=== PATIENT | female | born 1980 | race Asian ===

== ENCOUNTER → 2020-07-18 12:50 | Outpatient (BNVA) | payer OTHER, SELFPAY | PROVIDERS: Family Provider Family Medicine; Visit Provider Nurse Practitioner Family | DX: Z20.828 Contact with and (suspected) exposure to other viral communicable diseases (principal) | CPT/HCPCS: 87635 ==

== ENCOUNTER 2020-07-30 11:18 | Outpatient (CLI) | payer OTHER, SELFPAY ==
--- NOTE | 2020-07-30 11:22 | MM_ITS ---
WS: [id number] BILATERAL DIGITAL SCREENING MAMMOGRAPHY WITH CAD CLINICAL INFORMATION: SCREENING HISTORY: Screening mammogram. No current complaints. COMPARISON: 8 60 TECHNIQUE: Bilateral CC and MLO views. FINDINGS: Scattered fibroglandular densities bilaterally. No suspicious focal mass, asymmetry, calcifications, or architectural distortion. No evidence of malignancy. MM/[place] [id number] IMPRESSION: BI-RADS: 1-Negative FOLLOW UP: 1 Year Follow-up Recommend return to annual screening mammography.
== END 2020-07-30 11:19 | disposition home or self-care (01) ==
LOC: RADSHAW 11:20
PROVIDERS: PCP Family Medicine Adult Medicine; Visit Provider Family Medicine
DX: Z12.31 Encounter for screening mammogram for malignant neoplasm of breast (principal)
CPT/HCPCS: 77067

== ENCOUNTER 2020-11-25 12:13 | Emergency (ER) | payer OTHER, SELFPAY ==
[2020-11-25 12:16] VITALS: BP 171/92; PULSE 88; RESP 16; TEMP 36.7; O2SAT 99; BMI 28.3
--- NOTE | 2020-11-25 12:26 | ED_ITS ---
Documented by User: MILENA Angeles 11/26/20 06:59 HPI - Abdominal Pain General: Chief Complaint: Abdominal Pain Stated Complaint: severe abdominal pain Time Seen by Provider: 11/25/20 12:14 Source: patient and family Mode of arrival: ambulatory Limitations: no limitations History of Present Illness: HPI narrative: Patient is a 40-year-old female who presents to ED today for evaluation of upper abdominal pain. Patient tells me she has had the pain intermittently for several weeks. She tells me she was seen at urgent care approximately a month ago for similar symptoms and was prescribed a 2-week course of omeprazole. Patient tells me while she was taking this medication she no longer experienced pain. She states after the medication ran out, her pain began again. She states pain is worse after eating stating that certain foods (spicy) do seem to elicit pain. She states her pain seems to be worse at night when she lies down. She is not having any vomiting. She has not noticed any changes to her bowel movements. No fevers. No history of GI bleed. Patient is not on anticoagulation. She has no history of gastric or duodenal ulcers. MD elicited complaint: abdominal pain Onset (ago): week(s) Pain Consistency: intermittent Location: Epigastric Severity: moderate Radiation: none Migration to: no migration Exacerbating factors: eating Associated Symptoms: Denies change in bowel habits, change in stool character, chills, constipation, dysuria, fever(s), hematochezia, nausea and vomiting Treatments prior to arrival: other (PPI) Review of Systems Const: Denies: fever(s), chills, body aches or fatigue Card: Denies: chest pain Resp: Denies: dyspnea GI: Reports: abdominal pain; Denies: nausea, vomiting, constipation, change in bowel habits, change in stool character or hematochezia : Denies: flank pain, difficulty voiding, dysuria, urinary frequency or urinary urgency Musc: Denies: neck pain or back pain Skin/Breast: Denies: rash Neuro: Denies: headache(s) PFSH ED PFSH: Medical History Allergic rhinitis due to allergen COVID-19 Social History Smoking and tobacco status: never smoked Alcohol intake: never Physical Exam Const: COMMON NORMALS: no acute distress, average body habitus, patient oriented x3, no limitations, healthy appearing, alert and well nourished ORIENTATION/CONSCIOUSNESS: Yes awake, Yes oriented to person, Yes oriented to place and Yes oriented to time HENMT: COMMON NORMALS: normocephalic and atraumatic HEAD & SCALP: normocephalic and atraumatic Eye: SCLERA: scleral abnormal (mild scleral icterus ) Resp: COMMON NORMALS: normal respiratory effort and clear to auscultation bilaterally AUSCULTATION: clear to auscultation bilaterally Cardio: COMMON NORMALS: regular rate and regular rhythm RATE: regular rate RHYTHM: regular rhythm GI: COMMON NORMALS: Normal to inspection, nondistended, normoactive bowel sounds present, Soft to palpation, No hepatosplenomegaly present and no masses PALPATION: Yes Soft to palpation, Yes Tenderness to palpation present (GI) Details: other (epigastric ) and Yes No hepatosplenomegaly present : COMMON NORMALS: Yes no CVA tenderness BLADDER/KIDNEY EXAM: Yes no CVA tenderness Back/Pelvis: COMMON NORMALS: no CVA tenderness Neuro: COMMON NORMALS: patient oriented x3 SENSORIUM/ORIENTATION: Yes alert, Yes oriented to person, Yes oriented to place and Yes oriented to time Skin: NARRATIVE SKIN EXAM: mild jaundice Course ED course: CMP revealing elevated LFTs and bili. Patient denies alcohol or drug use. Her pain clinically is not localized to her right upper quadrant however we will obtain gallbladder ultrasound to rule this out as a possible etiology. Patient was born and raised in the [facility]-she is not sure about hepatitis childhood immunizations. We will add hepatitis panel, acetaminophen, alcohol, UDS, and INR to evaluate LFT elevations further. US gallbladder showing several large stones. Could not definitely state whether CBD was dilated or not. Her hepatitis panel is negative. She will need a MRCP for further evaluation. Reevaluation(s): Reevaluation #1: There will be a delay in pt care as MRCP cannot be performed until 4 hours post GI cocktail ingestion. Currently MRCP scheduled at 1700. Time: 15:10 Vital Signs: Vital signs: Vital Signs Temperature 98.0 F 11/25/20 19:45 Pulse Rate 68 11/25/20 19:45 Respiratory Rate 16 11/25/20 19:45 Blood Pressure 143/87 11/25/20 19:45 Pulse Oximetry 99 11/25/20 19:45 MDM - Abdominal Pain MDM Narrative: Medical decision making narrative: Care transferred to Dr. Reddy pending results of [facility]. Lab Data: Labs: Lab Results 11/25/20 11/25/20 11/25/20 Range/Units 12:50 12:50 12:50 WBC 9.4 (4.0-10.0) 10^3/ uL RBC 4.82 (4.1-5.3) 10^6/u L Hgb 13.2 (11.5-15.3) g/dL Hct 39.3 (37.0-47.0) % MCV 81.5 (81-99) fL MCH 27.4 L (28.0-34.0) pg MCHC 33.6 (30.0-36.0) g/dL RDW 12.4 (12.1-15.1) % Plt Count 342 (130-400) 10^3/c mm MPV 8.8 (7.4-10.4) fL Neut % (Auto) 80.8 % Lymph % (Auto) 11.5 % [place] % (Auto) 6.9 % Eos % (Auto) 0.4 % Baso % (Auto) 0.2 % Neut # (Auto) 7.55 (1.8-7.7) 10^3/u L Lymph # (Auto) 1.1 (0.8-4.8) 10^3/u L [place] # (Auto) 0.7 (0.2-0.9) 10^3/u L Eos # (Auto) 0.0 (0.0-0.8) 10^3/u L Baso # (Auto) 0.0 (0.0-0.1) 10^3/u L Nucleated RBC % (a uto) 0 % Nucleated RBCs # 0.0 /100WBC PT (12.1-14.9) SECO NDS INR (0.8-1.2) Sodium 136 (136-145) mmol/L Potassium 4.3 (3.5-5.1) mmol/L Chloride 99 (98-107) mmol/L Carbon Dioxide 25 (22-29) mmol/L Anion Gap 16.3 (5-19) BUN 11 (6-20) mg/dL Creatinine 0.4 L (0.5-0.9) mg/dL GFR Calculation 175.9 H (90-130) mL/min Glucose 109 (65-115) mg/dL Calculated Osmolal ity 282 L (285-295) mOsm/k g Calcium 9.7 (8.5-10.5) mg/dL Total Bilirubin 2.3 H (0.15-1.2) mg/dL Direct Bilirubin (0.00-0.30) mg/d L Indirect Bilirubin AST 1480 H (0-32) U/L ALT 1018 H (0-33) U/L Alkaline Phosphata se 129 H (35-105) IU/L Total Protein 7.9 (6.6-8.7) g/dL Albumin 4.5 (3.5-5.2) g/dL Globulin 3.4 (1.3-4.6) g/dL Lipase 45 (13-60) U/L HCG, Qual Negative (Negative) Urine Color (Yellow) Urine Appearance (CLEAR) Urine pH (5-7) Ur Specific Gravit y (1.005-1.030) Urine Protein (Negative) Urine Glucose (UA) (Normal) Urine Ketones (Negative) Urine Blood (Negative) Urine Nitrate (Negative) Urine Bilirubin (Negative) Urine Urobilinogen (Negative) mg/dL Ur Leukocyte Bridgett ase (Negative) Urine RBC (0-2) /hpf Urine WBC (0-5) /hpf Ur Squamous Epith Cells (0-5) /hpf Amorphous Sediment Urine Bacteria (NONE) /hpf Urine Opiates Scre en (Negative) ng/mL Acetaminophen (10-30) ug/mL Ur Barbiturates Sc reen (Negative) ng/mL Ur Phencyclidine S crn (Negative) ng/mL Ur Amphetamines Sc reen (Negative) ng/mL U Benzodiazepines Scrn (Negative) ng/mL Urine Cocaine Scre en (Negative) ng/mL U Marijuana (THC) Screen (Negative) ng/mL Ethyl Alcohol (0-10) mg/dL H. pylori IgG Anti body (Negative) Hepatitis A IgM Ab (Nonreactive) Hep Bs Antigen (Nonreactive) Hep B Core IgM Ab (Nonreactive) Hepatitis C Antibo dy (Nonreactive) 11/25/20 11/25/20 11/25/20 Range/Units 12:50 12:50 12:50 WBC (4.0-10.0) 10^3/ uL RBC (4.1-5.3) 10^6/u L Hgb (11.5-15.3) g/dL Hct (37.0-47.0) % MCV (81-99) fL MCH (28.0-34.0) pg MCHC (30.0-36.0) g/dL RDW (12.1-15.1) % Plt Count (130-400) 10^3/c mm MPV (7.4-10.4) fL Neut % (Auto) % Lymph % (Auto) % [place] % (Auto) % Eos % (Auto) % Baso % (Auto) % Neut # (Auto) (1.8-7.7) 10^3/u L Lymph # (Auto) (0.8-4.8) 10^3/u L [place] # (Auto) (0.2-0.9) 10^3/u L Eos # (Auto) (0.0-0.8) 10^3/u L Baso # (Auto) (0.0-0.1) 10^3/u L Nucleated RBC % (a uto) % Nucleated RBCs # /100WBC PT 12.80 (12.1-14.9) SECO NDS INR 0.93 (0.8-1.2) Sodium (136-145) mmol/L Potassium (3.5-5.1) mmol/L Chloride (98-107) mmol/L Carbon Dioxide (22-29) mmol/L Anion Gap (5-19) BUN (6-20) mg/dL Creatinine (0.5-0.9) mg/dL GFR Calculation (90-130) mL/min Glucose (65-115) mg/dL Calculated Osmolal ity (285-295) mOsm/k g Calcium (8.5-10.5) mg/dL Total Bilirubin (0.15-1.2) mg/dL Direct Bilirubin (0.00-0.30) mg/d L Indirect Bilirubin AST (0-32) U/L ALT (0-33) U/L Alkaline Phosphata se (35-105) IU/L Total Protein (6.6-8.7) g/dL Albumin (3.5-5.2) g/dL Globulin (1.3-4.6) g/dL Lipase (13-60) U/L HCG, Qual (Negative) Urine Color (Yellow) Urine Appearance (CLEAR) Urine pH (5-7) Ur Specific Gravit y (1.005-1.030) Urine Protein (Negative) Urine Glucose (UA) (Normal) Urine Ketones (Negative) Urine Blood (Negative) Urine Nitrate (Negative) Urine Bilirubin (Negative) Urine Urobilinogen (Negative) mg/dL Ur Leukocyte Bridgett ase (Negative) Urine RBC (0-2) /hpf Urine WBC (0-5) /hpf Ur Squamous Epith Cells (0-5) /hpf Amorphous Sediment Urine Bacteria (NONE) /hpf Urine Opiates Scre en (Negative) ng/mL Acetaminophen (10-30) ug/mL Ur Barbiturates Sc reen (Negative) ng/mL Ur Phencyclidine S crn (Negative) ng/mL Ur Amphetamines Sc reen (Negative) ng/mL U Benzodiazepines Scrn (Negative) ng/mL Urine Cocaine Scre en (Negative) ng/mL U Marijuana (THC) Screen (Negative) ng/mL Ethyl Alcohol (0-10) mg/dL H. pylori IgG Anti body Negative (Negative) Hepatitis A IgM Ab Non-reactive (Nonreactive) Hep Bs Antigen Non-reactive (Nonreactive) Hep B Core IgM Ab Non-reactive (Nonreactive) Hepatitis C Antibo dy Non-reactive (Nonreactive) 11/25/20 11/25/20 11/25/20 Range/Units 12:50 12:50 15:54 WBC (4.0-10.0) 10^3/ uL RBC (4.1-5.3) 10^6/u L Hgb (11.5-15.3) g/dL Hct (37.0-47.0) % MCV (81-99) fL MCH (28.0-34.0) pg MCHC (30.0-36.0) g/dL RDW (12.1-15.1) % Plt Count (130-400) 10^3/c mm MPV (7.4-10.4) fL Neut % (Auto) % Lymph % (Auto) % [place] % (Auto) % Eos % (Auto) % Baso % (Auto) % Neut # (Auto) (1.8-7.7) 10^3/u L Lymph # (Auto) (0.8-4.8) 10^3/u L [place] # (Auto) (0.2-0.9) 10^3/u L Eos # (Auto) (0.0-0.8) 10^3/u L Baso # (Auto) (0.0-0.1) 10^3/u L Nucleated RBC % (a uto) % Nucleated RBCs # /100WBC PT (12.1-14.9) SECO NDS INR (0.8-1.2) Sodium (136-145) mmol/L Potassium (3.5-5.1) mmol/L Chloride (98-107) mmol/L Carbon Dioxide (22-29) mmol/L Anion Gap (5-19) BUN (6-20) mg/dL Creatinine (0.5-0.9) mg/dL GFR Calculation (90-130) mL/min Glucose (65-115) mg/dL Calculated Osmolal ity (285-295) mOsm/k g Calcium (8.5-10.5) mg/dL Total Bilirubin 2.4 H (0.15-1.2) mg/dL Direct Bilirubin 1.60 H (0.00-0.30) mg/d L Indirect Bilirubin 0.80 AST (0-32) U/L ALT (0-33) U/L Alkaline Phosphata se (35-105) IU/L Total Protein (6.6-8.7) g/dL Albumin (3.5-5.2) g/dL Globulin (1.3-4.6) g/dL Lipase (13-60) U/L HCG, Qual (Negative) Urine Color (Yellow) Urine Appearance (CLEAR) Urine pH (5-7) Ur Specific Gravit y (1.005-1.030) Urine Protein (Negative) Urine Glucose (UA) (Normal) Urine Ketones (Negative) Urine Blood (Negative) Urine Nitrate (Negative) Urine Bilirubin (Negative) Urine Urobilinogen (Negative) mg/dL Ur Leukocyte Bridgett ase (Negative) Urine RBC (0-2) /hpf Urine WBC (0-5) /hpf Ur Squamous Epith Cells (0-5) /hpf Amorphous Sediment Urine Bacteria (NONE) /hpf Urine Opiates Scre en Negative (Negative) ng/mL Acetaminophen < 5.0 L (10-30) ug/mL Ur Barbiturates Sc reen Negative (Negative) ng/mL Ur Phencyclidine S crn Negative (Negative) ng/mL Ur Amphetamines Sc reen Negative (Negative) ng/mL U Benzodiazepines Scrn Negative (Negative) ng/mL Urine Cocaine Scre en Negative (Negative) ng/mL U Marijuana (THC) Screen Negative (Negative) ng/mL Ethyl Alcohol < 10 (0-10) mg/dL H. pylori IgG Anti body (Negative) Hepatitis A IgM Ab (Nonreactive) Hep Bs Antigen (Nonreactive) Hep B Core IgM Ab (Nonreactive) Hepatitis C Antibo dy (Nonreactive) 11/25/20 Range/Units 15:54 WBC (4.0-10.0) 10^3/ uL RBC (4.1-5.3) 10^6/u L Hgb (11.5-15.3) g/dL Hct (37.0-47.0) % MCV (81-99) fL MCH (28.0-34.0) pg MCHC (30.0-36.0) g/dL RDW (12.1-15.1) % Plt Count (130-400) 10^3/c mm MPV (7.4-10.4) fL Neut % (Auto) % Lymph % (Auto) % [place] % (Auto) % Eos % (Auto) % Baso % (Auto) % Neut # (Auto) (1.8-7.7) 10^3/u L Lymph # (Auto) (0.8-4.8) 10^3/u L [place] # (Auto) (0.2-0.9) 10^3/u L Eos # (Auto) (0.0-0.8) 10^3/u L Baso # (Auto) (0.0-0.1) 10^3/u L Nucleated RBC % (a uto) % Nucleated RBCs # /100WBC PT (12.1-14.9) SECO NDS INR (0.8-1.2) Sodium (136-145) mmol/L Potassium (3.5-5.1) mmol/L Chloride (98-107) mmol/L Carbon Dioxide (22-29) mmol/L Anion Gap (5-19) BUN (6-20) mg/dL Creatinine (0.5-0.9) mg/dL GFR Calculation (90-130) mL/min Glucose (65-115) mg/dL Calculated Osmolal ity (285-295) mOsm/k g Calcium (8.5-10.5) mg/dL Total Bilirubin (0.15-1.2) mg/dL Direct Bilirubin (0.00-0.30) mg/d L Indirect Bilirubin AST (0-32) U/L ALT (0-33) U/L Alkaline Phosphata se (35-105) IU/L Total Protein (6.6-8.7) g/dL Albumin (3.5-5.2) g/dL Globulin (1.3-4.6) g/dL Lipase (13-60) U/L HCG, Qual (Negative) Urine Color Yellow (Yellow) Urine Appearance Clear (CLEAR) Urine pH 7.0 (5-7) Ur Specific Gravit y 1.010 (1.005-1.030) Urine Protein Neg (Negative) Urine Glucose (UA) Norm (Normal) Urine Ketones 1+ H (Negative) Urine Blood 3+ H (Negative) Urine Nitrate Negative (Negative) Urine Bilirubin 1+ H (Negative) Urine Urobilinogen 1 H (Negative) mg/dL Ur Leukocyte Bridgett ase Negative (Negative) Urine RBC Rare (0-2) /hpf Urine WBC None (0-5) /hpf Ur Squamous Epith Cells Rare (0-5) /hpf Amorphous Sediment Not Reportable Urine Bacteria 1+ H (NONE) /hpf Urine Opiates Scre en (Negative) ng/mL Acetaminophen (10-30) ug/mL Ur Barbiturates Sc reen (Negative) ng/mL Ur Phencyclidine S crn (Negative) ng/mL Ur Amphetamines Sc reen (Negative) ng/mL U Benzodiazepines Scrn (Negative) ng/mL Urine Cocaine Scre en (Negative) ng/mL U Marijuana (THC) Screen (Negative) ng/mL Ethyl Alcohol (0-10) mg/dL H. pylori IgG Anti body (Negative) Hepatitis A IgM Ab (Nonreactive) Hep Bs Antigen (Nonreactive) Hep B Core IgM Ab (Nonreactive) Hepatitis C Antibo dy (Nonreactive) Imaging Data ^: US gallbladder: Radiologist's impression: [address] [address] Ultrasound Report Signed Patient: Josh Millan Unit #: [id number] : 1980 Age/Sex: 40 / F ADM Date: Loc: ER Room/Bed: Attending Dr: Ordering Provider/Ordering MD: oMnique Oconnor Date of Service: 11/25/20 Procedure(s): US gall bladder 98626 Accession Number(s): [id number] Report Number: [id number] WS: [id number] Exam: US gall bladder [id number] Date/Time of Exam: 11/25/2020 2:07 PM Reason For Exam: upper abd pain; elevated LFTs Multiple prominent stones in the gallbladder. No sign of gallbladder wall edema or pericholecystic fluid. The intrahepatic ducts are not dilated. The common bile duct was difficult to localize with any degree of certainty. The liver measures 15 cm at greatest dimension. Gallbladder foy measure 1.2 mm at greatest thickness. Normal-appearing right kidney measures 11.2 x 4.3 x 5.9 cm. The liver is echodense suggesting hepatic steatosis. US/US gall bladder 94312 IMPRESSION: 1. Multiple large stones in the gallbladder. No definite sign of acute cholecystitis at this time. 2. The common bile duct could not be identified with a degree of certainty. No obvious intrahepatic ductal dilatation. 3. Probable hepatic steatosis. Dictated By: Xavier Brice DO Signed By: Xavier Brice DO Signed Date/Time: 11/25/20 1439 DD/ 1435 Discharge Plan Discharge Patient Disposition: Home Clinical Impression: Choledocholithiasis Condition: Stable Prescriptions: New tramadol 50 mg tablet 50 mg PO DAILY PRN (Reason: pain) Qty: 14 RF: 0 omeprazole 40 mg capsule,delayed release(DR/EC) 40 mg PO DAILY 14 Days RF: 0 No Action Vitamin C 1 tab PO DAILY@0700 RF: 0 Claritin 10 mg Tablet 10 mg PO DAILY PRN (Reason: Allergy Symptoms) RF: 0 Centrum 1 tab PO DAILY@0700 RF: 0 Discharge Orders: Discharge ED (Routine); Ordered 11/25/20 Ordered By: Amari Reddy Referrals: Eric Zuniga MD [Primary Care Provider] - Discharge Diet: Advance as tolerated Discharge Activity: Resume usual activity Patient Instructions: Biliary Colic (ED) Activity Restrictions/Additional Instructions: You have a stone in your common bile duct. I have discussed with the general surgeon Dr. Meyer At [facility] and he would prefer that you follow-up as an outpatient. His clinic number is [phone]. Please call tomorrow morning for an appointment. Return to the ED with worsening symptoms at any time. Coding Level of Care Code ED Fiber Optic Splicer for Chg Fwd Exam Detailed Documented by User: Amari Reddy MD 11/25/20 19:26 HPI - Abdominal Pain General: Chief Complaint: Abdominal Pain Stated Complaint: severe abdominal pain Time Seen by Provider: 11/25/20 12:14 [facility] ED PFSH: Medical History Allergic rhinitis due to allergen COVID-19 Social History Smoking and tobacco status: never smoked Alcohol intake: never Course Vital Signs: Vital signs: Vital Signs Temperature 98.0 F 11/25/20 19:45 Pulse Rate 68 11/25/20 19:45 Respiratory Rate 16 11/25/20 19:45 Blood Pressure 143/87 11/25/20 19:45 Pulse Oximetry 99 11/25/20 19:45 MDM - Abdominal Pain MDM Narrative: Medical decision making narrative: I took over care of this patient from the nurse practitioner. There is a small distal common bile duct stone. She has elevated bilirubin and liver enzymes mildly. Discussed with surgeon Dr. Meyer at [facility] who recommended discharging and following up as an outpatient for the ERCP as her pain is controlled quite well and bilirubin is not too elevated. Discussed this with the patient and she is amenable to this plan. Return to the ER with worsening symptoms. Discharged with tramadol and omeprazole at her request Lab Data: Labs: Lab Results 11/25/20 11/25/20 11/25/20 Range/Units 12:50 12:50 12:50 WBC 9.4 (4.0-10.0) 10^3/ uL RBC 4.82 (4.1-5.3) 10^6/u L Hgb 13.2 (11.5-15.3) g/dL Hct 39.3 (37.0-47.0) % MCV 81.5 (81-99) fL MCH 27.4 L (28.0-34.0) pg MCHC 33.6 (30.0-36.0) g/dL RDW 12.4 (12.1-15.1) % Plt Count 342 (130-400) 10^3/c mm MPV 8.8 (7.4-10.4) fL Neut % (Auto) 80.8 % Lymph % (Auto) 11.5 % [place] % (Auto) 6.9 % Eos % (Auto) 0.4 % Baso % (Auto) 0.2 % Neut # (Auto) 7.55 (1.8-7.7) 10^3/u L Lymph # (Auto) 1.1 (0.8-4.8) 10^3/u L [place] # (Auto) 0.7 (0.2-0.9) 10^3/u L Eos # (Auto) 0.0 (0.0-0.8) 10^3/u L Baso # (Auto) 0.0 (0.0-0.1) 10^3/u L Nucleated RBC % (a uto) 0 % Nucleated RBCs # 0.0 /100WBC PT (12.1-14.9) SECO NDS INR (0.8-1.2) Sodium 136 (136-145) mmol/L Potassium 4.3 (3.5-5.1) mmol/L Chloride 99 (98-107) mmol/L Carbon Dioxide 25 (22-29) mmol/L Anion Gap 16.3 (5-19) BUN 11 (6-20) mg/dL Creatinine 0.4 L (0.5-0.9) mg/dL GFR Calculation 175.9 H (90-130) mL/min Glucose 109 (65-115) mg/dL Calculated Osmolal ity 282 L (285-295) mOsm/k g Calcium 9.7 (8.5-10.5) mg/dL Total Bilirubin 2.3 H (0.15-1.2) mg/dL Direct Bilirubin (0.00-0.30) mg/d L Indirect Bilirubin AST 1480 H (0-32) U/L ALT 1018 H (0-33) U/L Alkaline Phosphata se 129 H (35-105) IU/L Total Protein 7.9 (6.6-8.7) g/dL Albumin 4.5 (3.5-5.2) g/dL Globulin 3.4 (1.3-4.6) g/dL Lipase 45 (13-60) U/L HCG, Qual Negative (Negative) Urine Color (Yellow) Urine Appearance (CLEAR) Urine pH (5-7) Ur Specific Gravit y (1.005-1.030) Urine Protein (Negative) Urine Glucose (UA) (Normal) Urine Ketones (Negative) Urine Blood (Negative) Urine Nitrate (Negative) Urine Bilirubin (Negative) Urine Urobilinogen (Negative) mg/dL Ur Leukocyte Bridgett ase (Negative) Urine RBC (0-2) /hpf Urine WBC (0-5) /hpf Ur Squamous Epith Cells (0-5) /hpf Amorphous Sediment Urine Bacteria (NONE) /hpf Urine Opiates Scre en (Negative) ng/mL Acetaminophen (10-30) ug/mL Ur Barbiturates Sc reen (Negative) ng/mL Ur Phencyclidine S crn (Negative) ng/mL Ur Amphetamines Sc reen (Negative) ng/mL U Benzodiazepines Scrn (Negative) ng/mL Urine Cocaine Scre en (Negative) ng/mL U Marijuana (THC) Screen (Negative) ng/mL Ethyl Alcohol (0-10) mg/dL H. pylori IgG Anti body (Negative) Hepatitis A IgM Ab (Nonreactive) Hep Bs Antigen (Nonreactive) Hep B Core IgM Ab (Nonreactive) Hepatitis C Antibo dy (Nonreactive) 11/25/20 11/25/20 11/25/20 Range/Units 12:50 12:50 12:50 WBC (4.0-10.0) 10^3/ uL RBC (4.1-5.3) 10^6/u L Hgb (11.5-15.3) g/dL Hct (37.0-47.0) % MCV (81-99) fL MCH (28.0-34.0) pg MCHC (30.0-36.0) g/dL RDW (12.1-15.1) % Plt Count (130-400) 10^3/c mm MPV (7.4-10.4) fL Neut % (Auto) % Lymph % (Auto) % [place] % (Auto) % Eos % (Auto) % Baso % (Auto) % Neut # (Auto) (1.8-7.7) 10^3/u L Lymph # (Auto) (0.8-4.8) 10^3/u L [place] # (Auto) (0.2-0.9) 10^3/u L Eos # (Auto) (0.0-0.8) 10^3/u L Baso # (Auto) (0.0-0.1) 10^3/u L Nucleated RBC % (a uto) % Nucleated RBCs # /100WBC PT 12.80 (12.1-14.9) SECO NDS INR 0.93 (0.8-1.2) Sodium (136-145) mmol/L Potassium (3.5-5.1) mmol/L Chloride (98-107) mmol/L Carbon Dioxide (22-29) mmol/L Anion Gap (5-19) BUN (6-20) mg/dL Creatinine (0.5-0.9) mg/dL GFR Calculation (90-130) mL/min Glucose (65-115) mg/dL Calculated Osmolal ity (285-295) mOsm/k g Calcium (8.5-10.5) mg/dL Total Bilirubin (0.15-1.2) mg/dL Direct Bilirubin (0.00-0.30) mg/d L Indirect Bilirubin AST (0-32) U/L ALT (0-33) U/L Alkaline Phosphata se (35-105) IU/L Total Protein (6.6-8.7) g/dL Albumin (3.5-5.2) g/dL Globulin (1.3-4.6) g/dL Lipase (13-60) U/L HCG, Qual (Negative) Urine Color (Yellow) Urine Appearance (CLEAR) Urine pH (5-7) Ur Specific Gravit y (1.005-1.030) Urine Protein (Negative) Urine Glucose (UA) (Normal) Urine Ketones (Negative) Urine Blood (Negative) Urine Nitrate (Negative) Urine Bilirubin (Negative) Urine Urobilinogen (Negative) mg/dL Ur Leukocyte Bridgett ase (Negative) Urine RBC (0-2) /hpf Urine WBC (0-5) /hpf Ur Squamous Epith Cells (0-5) /hpf Amorphous Sediment Urine Bacteria (NONE) /hpf Urine Opiates Scre en (Negative) ng/mL Acetaminophen (10-30) ug/mL Ur Barbiturates Sc reen (Negative) ng/mL Ur Phencyclidine S crn (Negative) ng/mL Ur Amphetamines Sc reen (Negative) ng/mL U Benzodiazepines Scrn (Negative) ng/mL Urine Cocaine Scre en (Negative) ng/mL U Marijuana (THC) Screen (Negative) ng/mL Ethyl Alcohol (0-10) mg/dL H. pylori IgG Anti body Negative (Negative) Hepatitis A IgM Ab Non-reactive (Nonreactive) Hep Bs Antigen Non-reactive (Nonreactive) Hep B Core IgM Ab Non-reactive (Nonreactive) Hepatitis C Antibo dy Non-reactive (Nonreactive) 11/25/20 11/25/20 11/25/20 Range/Units 12:50 12:50 15:54 WBC (4.0-10.0) 10^3/ uL RBC (4.1-5.3) 10^6/u L Hgb (11.5-15.3) g/dL Hct (37.0-47.0) % MCV (81-99) fL MCH (28.0-34.0) pg MCHC (30.0-36.0) g/dL RDW (12.1-15.1) % Plt Count (130-400) 10^3/c mm MPV (7.4-10.4) fL Neut % (Auto) % Lymph % (Auto) % [place] % (Auto) % Eos % (Auto) % Baso % (Auto) % Neut # (Auto) (1.8-7.7) 10^3/u L Lymph # (Auto) (0.8-4.8) 10^3/u L [place] # (Auto) (0.2-0.9) 10^3/u L Eos # (Auto) (0.0-0.8) 10^3/u L Baso # (Auto) (0.0-0.1) 10^3/u L Nucleated RBC % (a uto) % Nucleated RBCs # /100WBC PT (12.1-14.9) SECO NDS INR (0.8-1.2) Sodium (136-145) mmol/L Potassium (3.5-5.1) mmol/L Chloride (98-107) mmol/L Carbon Dioxide (22-29) mmol/L Anion Gap (5-19) BUN (6-20) mg/dL Creatinine (0.5-0.9) mg/dL GFR Calculation (90-130) mL/min Glucose (65-115) mg/dL Calculated Osmolal ity (285-295) mOsm/k g Calcium (8.5-10.5) mg/dL Total Bilirubin 2.4 H (0.15-1.2) mg/dL Direct Bilirubin 1.60 H (0.00-0.30) mg/d L Indirect Bilirubin 0.80 AST (0-32) U/L ALT (0-33) U/L Alkaline Phosphata se (35-105) IU/L Total Protein (6.6-8.7) g/dL Albumin (3.5-5.2) g/dL Globulin (1.3-4.6) g/dL Lipase (13-60) U/L HCG, Qual (Negative) Urine Color (Yellow) Urine Appearance (CLEAR) Urine pH (5-7) Ur Specific Gravit y (1.005-1.030) Urine Protein (Negative) Urine Glucose (UA) (Normal) Urine Ketones (Negative) Urine Blood (Negative) Urine Nitrate (Negative) Urine Bilirubin (Negative) Urine Urobilinogen (Negative) mg/dL Ur Leukocyte Bridgett ase (Negative) Urine RBC (0-2) /hpf Urine WBC (0-5) /hpf Ur Squamous Epith Cells (0-5) /hpf Amorphous Sediment Urine Bacteria (NONE) /hpf Urine Opiates Scre en Negative (Negative) ng/mL Acetaminophen < 5.0 L (10-30) ug/mL Ur Barbiturates Sc reen Negative (Negative) ng/mL Ur Phencyclidine S crn Negative (Negative) ng/mL Ur Amphetamines Sc reen Negative (Negative) ng/mL U Benzodiazepines Scrn Negative (Negative) ng/mL Urine Cocaine Scre en Negative (Negative) ng/mL U Marijuana (THC) Screen Negative (Negative) ng/mL Ethyl Alcohol < 10 (0-10) mg/dL H. pylori IgG Anti body (Negative) Hepatitis A IgM Ab (Nonreactive) Hep Bs Antigen (Nonreactive) Hep B Core IgM Ab (Nonreactive) Hepatitis C Antibo dy (Nonreactive) 11/25/20 Range/Units 15:54 WBC (4.0-10.0) 10^3/ uL RBC (4.1-5.3) 10^6/u L Hgb (11.5-15.3) g/dL Hct (37.0-47.0) % MCV (81-99) fL MCH (28.0-34.0) pg MCHC (30.0-36.0) g/dL RDW (12.1-15.1) % Plt Count (130-400) 10^3/c mm MPV (7.4-10.4) fL Neut % (Auto) % Lymph % (Auto) % [place] % (Auto) % Eos % (Auto) % Baso % (Auto) % Neut # (Auto) (1.8-7.7) 10^3/u L Lymph # (Auto) (0.8-4.8) 10^3/u L [place] # (Auto) (0.2-0.9) 10^3/u L Eos # (Auto) (0.0-0.8) 10^3/u L Baso # (Auto) (0.0-0.1) 10^3/u L Nucleated RBC % (a uto) % Nucleated RBCs # /100WBC PT (12.1-14.9) SECO NDS INR (0.8-1.2) Sodium (136-145) mmol/L Potassium (3.5-5.1) mmol/L Chloride (98-107) mmol/L Carbon Dioxide (22-29) mmol/L Anion Gap (5-19) BUN (6-20) mg/dL Creatinine (0.5-0.9) mg/dL GFR Calculation (90-130) mL/min Glucose (65-115) mg/dL Calculated Osmolal ity (285-295) mOsm/k g Calcium (8.5-10.5) mg/dL Total Bilirubin (0.15-1.2) mg/dL Direct Bilirubin (0.00-0.30) mg/d L Indirect Bilirubin AST (0-32) U/L ALT (0-33) U/L Alkaline Phosphata se (35-105) IU/L Total Protein (6.6-8.7) g/dL Albumin (3.5-5.2) g/dL Globulin (1.3-4.6) g/dL Lipase (13-60) U/L HCG, Qual (Negative) Urine Color Yellow (Yellow) Urine Appearance Clear (CLEAR) Urine pH 7.0 (5-7) Ur Specific Gravit y 1.010 (1.005-1.030) Urine Protein Neg (Negative) Urine Glucose (UA) Norm (Normal) Urine Ketones 1+ H (Negative) Urine Blood 3+ H (Negative) Urine Nitrate Negative (Negative) Urine Bilirubin 1+ H (Negative) Urine Urobilinogen 1 H (Negative) mg/dL Ur Leukocyte Bridgett ase Negative (Negative) Urine RBC Rare (0-2) /hpf Urine WBC None (0-5) /hpf Ur Squamous Epith Cells Rare (0-5) /hpf Amorphous Sediment Not Reportable Urine Bacteria 1+ H (NONE) /hpf Urine Opiates Scre en (Negative) ng/mL Acetaminophen (10-30) ug/mL Ur Barbiturates Sc reen (Negative) ng/mL Ur Phencyclidine S crn (Negative) ng/mL Ur Amphetamines Sc reen (Negative) ng/mL U Benzodiazepines Scrn (Negative) ng/mL Urine Cocaine Scre en (Negative) ng/mL U Marijuana (THC) Screen (Negative) ng/mL Ethyl Alcohol (0-10) mg/dL H. pylori IgG Anti body (Negative) Hepatitis A IgM Ab (Nonreactive) Hep Bs Antigen (Nonreactive) Hep B Core IgM Ab (Nonreactive) Hepatitis C Antibo dy (Nonreactive) Discharge Plan Discharge Patient Disposition: Home Clinical Impression: Choledocholithiasis Condition: Stable Prescriptions: New tramadol 50 mg tablet 50 mg PO DAILY PRN (Reason: pain) Qty: 14 RF: 0 omeprazole 40 mg capsule,delayed release(DR/EC) 40 mg PO DAILY 14 Days RF: 0 No Action Vitamin C 1 tab PO DAILY@0700 RF: 0 Claritin 10 mg Tablet 10 mg PO DAILY PRN (Reason: Allergy Symptoms) RF: 0 Centrum 1 tab PO DAILY@0700 RF: 0 Discharge Orders: Discharge ED (Routine); Ordered 11/25/20 Ordered By: Amari Reddy Referrals: Eric Zuniga MD [Primary Care Provider] - Discharge Diet: Advance as tolerated Discharge Activity: Resume usual activity Patient Instructions: Biliary Colic (ED) Activity Restrictions/Additional Instructions: You have a stone in your common bile duct. I have discussed with the general surgeon Dr. Meyer At [facility] and he would prefer that you follow-up as an outpatient. His clinic number is [phone]. Please call tomorrow morning for an appointment. Return to the ED with worsening symptoms at any time. Coding Level of Care Code ED Fiber Optic Splicer for Jessica Fwcarlos Exam Detailed
[2020-11-25 12:48] VITALS: BP 136/94; PULSE 67; RESP 16; O2SAT 99
[2020-11-25] MEDS: lidocaine 2% viscous 15 ML, aluminum-mag hydrox-simethicon 30 ML, sucralfate oral liq 1 GM PO (12:48)
[2020-11-25 13:07] LABS: Basophils % 0.2 %; Eosinophils % 0.4 %; Hematocrit 39.3 % (37.0-47.0); Hemoglobin 13.2 g/dL (11.5-15.3); Lymphocytes # 1.1 10^3/uL (0.8-4.8); Lymphocytes % 11.5 %; Mean Corpuscular HGB Conc 33.6 g/dL (30.0-36.0); Mean Corpuscular Hemoglobin 27.4 pg (28.0-34.0); Mean Corpuscular Volume 81.5 fL (81-99); Mean Platelet Volume 8.8 fL (7.4-10.4); Monocytes # 0.7 10^3/uL (0.2-0.9); Monocytes % 6.9 %; Neutrophils # 7.55 10^3/uL (1.8-7.7); Neutrophils % 80.8 %; Nucleated Red Blood Cells % 0 %; Platelet Count 342 10^3/cmm (130-400); Red Blood Count 4.82 10^6/uL (4.1-5.3); Red Cell Distribution Width 12.4 % (12.1-15.1); White Blood Count 9.4 10^3/uL (4.0-10.0)
[2020-11-25 13:31] LABS: Albumin Level 4.5 g/dL (3.5-5.2); Alkaline Phosphatase 129 IU/L (35-105); Blood Urea Nitrogen 11 mg/dL (6-20); Calcium 9.7 mg/dL (8.5-10.5); Carbon Dioxide 25 mmol/L (22-29); Chloride 99 mmol/L (98-107); Globulin 3.4 g/dL (1.3-4.6); Glomerular Filtration Rate 175.9 mL/min (90-130); Glucose 109 mg/dL (65-115); Lipase 45 U/L (13-60); Osmolality Calculated 282 mOsm/kg (285-295); Sodium 136 mmol/L (136-145); Total Bilirubin 2.3 mg/dL (0.15-1.2); Total Protein 7.9 g/dL (6.6-8.7)
[2020-11-25 13:32] LABS: HCG, Serum Qual Negative (Negative)
[2020-11-25 13:34] LABS: Anion Gap 16.3 (5-19); H. Pylori IgG Antibody Negative (Negative); Potassium 4.3 mmol/L (3.5-5.1)
[2020-11-25 13:43] LABS: Alanine Aminotransferase 1018 U/L (0-33)
[2020-11-25 13:50] LABS: Aspartate Amino Transferase 1480 U/L (0-32)
--- NOTE | 2020-11-25 13:54 | US_ITS ---
WS: [id number] Exam: US gall bladder [id number] Date/Time of Exam: 11/25/2020 2:07 PM Reason For Exam: upper abd pain; elevated LFTs Multiple prominent stones in the gallbladder. No sign of gallbladder wall edema or pericholecystic fl uid. The intrahepatic ducts are not dilated. The common bile duct was difficult to localize with any degree of certainty. The liver measures 15 cm at greatest dimension. Gallbladder foy measure 1.2 mm at greatest thickness. Normal-appearing right kidney measures 11.2 x 4.3 x 5.9 cm. The liver is echo dense suggesting hepatic steatosis. US/US gall bladder [id number] IMPRESSION: 1. Multiple large stones in the gallbladder. No definite sign of acute cholecys titis at this time. 2. The common bile duct could not be identified with a degree of certainty. No obvious intrahepatic ductal dilatation. 3. Probable hepatic steatosis.
[2020-11-25 14:18] VITALS: BP 151/94; PULSE 65; RESP 16; O2SAT 99
[2020-11-25 14:20] LABS: INR 0.93 (0.8-1.2)
[2020-11-25 14:33] LABS: Hepatitis A Antibody IgM Non-Reactive (Nonreactive); Hepatitis B Core IgM Non-Reactive (Nonreactive); Hepatitis B Surface Antigen Non-Reactive (Nonreactive); Hepatitis C Virus Antibody Non-Reactive (Nonreactive)
[2020-11-25 14:46] LABS: Acetaminophen < 5.0 ug/mL (10-30); Alcohol Level < 10 mg/dL (0-10)
[2020-11-25 14:56] VITALS: BP 151/76; PULSE 76; RESP 16; O2SAT 99
[2020-11-25 16:07] LABS: Add Urine Microscopic? YES; Bilirubin Urine 1+ (Negative); Blood Urine 3+ (Negative); Glucose Urine UA Norm (Normal); Ketones Urine 1+ (Negative); Leukocyte Esterase Urine Negative (Negative); Nitrate Urine Negative (Negative); Protein Urine Neg (Negative); Urine Appearance Clear (CLEAR); Urine Color Yellow (Yellow); Urobilinogen Urine 1 mg/dL (Negative)
[2020-11-25 16:19] LABS: RBC Urine RARE /hpf (0-2); Squamous Epithelial Cell Urine RARE /hpf (0-5)
[2020-11-25 16:20] LABS: Add Urine Culture? No; Amphetamines Screen Urine Negative (Negative); Bacteria Urine 1+ /hpf; Barbiturates Screen Urine Negative (Negative); Benzodiazepines Screen Urine Negative (Negative); Cocaine Screen Urine Negative (Negative); Opiate Screen Urine Negative (Negative); PCP Screen Urine Negative (Negative); THC Screen Urine Negative (Negative)
[2020-11-25 17:00] VITALS: PULSE 68; RESP 16; O2SAT 99
--- NOTE | 2020-11-25 17:00 | MRR_ITS ---
PROCEDURE INFORMATION: Exam: MR Abdomen Without Contrast Exam date and time: 11/25/2020 5:00 PM Age: 40 years old Clinical indication: Abdominal pain; Acute; Additional info: Gallstones; Lft/bili elevations TECHNIQUE: Imaging protocol: MR of the abdomen without contrast. COMPARISON: US gall bladder [id number] 11/25/2020 2:04 PM FINDINGS: Liver: Diffuse fatty infiltration of the liver. Gallbladder and bile ducts: Multiple stones in the gallbladder measuring up to 2.2 cm. No visible gallbladder wall thickening. 4 mm oval filling defect in the terminal common bile duct. The common bile duct measures 8 mm in diameter. No intrahepatic ductal dilatation. Pancreas: Unremarkable. No ductal dilation. Spleen: Unremarkable. No splenomegaly. Adrenal glands: Unremarkable. No mass. Kidneys and ureters: Unremarkable. No solid mass. No hydronephrosis. Stomach and bowel: Visualized stomach and intestines are unremarkable. Appendix: The appendix is visualized and is normal. Intraperitoneal space: No free fluid. Arteries: No abdominal aortic aneurysm. Bones/joints: Unremarkable. Soft tissues: Unremarkable. MR/MR MRCP [id number] IMPRESSION: 1. 4 mm filling defect in the terminal common bile duct is suspicious for a small intraductal stone. 2. Cholelithiasis without evidence for cholecystitis. 3. Fatty infiltration of the liver.
--- NOTE | 2020-11-25 17:00 | PC.NURSE ---
Patient being taken over to MRI for MRCP.
--- NOTE | 2020-11-25 18:04 | PC.NURSE ---
Patient back from MRI.
[2020-11-25 19:24] LABS: Total Bilirubin 2.4 mg/dL (0.15-1.2)
[2020-11-25] MEDS: TRAMadol 50 mg Tablet PO (19:42)
[2020-11-25 19:45] VITALS: BP 143/87; PULSE 68; RESP 16; TEMP 36.7; O2SAT 99
== END 2020-11-25 19:45 | disposition home or self-care (01) ==
PROVIDERS: Physician Assistant; Emergency Provider Family Medicine; PCP Family Medicine Adult Medicine
DX: K80.50 Calculus of bile duct without cholangitis or cholecystitis without obstruction (principal)
CPT/HCPCS: 12345; 74181; 76705; 80053; 80074; 80306; 80307; 81001; 82247; 82248; 83690; 84703; 85025; 85610; 86677; 99283

== ENCOUNTER 2020-11-26 10:14 | Emergency (ER) | payer OTHER, SELFPAY ==
--- NOTE | 2020-11-26 10:16 | W.ED.ABDPA2 ---
Documented by User: MILENA Angeles 11/26/20 12:37 HPI - Abdominal Pain General: Chief Complaint: Recheck/Abnormal Lab/Rx Stated Complaint: Elevatated LFT's Time Seen by Provider: 11/26/20 10:15 Source: patient and family Mode of arrival: ambulatory Limitations: no limitations History of Present Illness: HPI narrative: Patient is a 40-year-old female who presents to ED today at my request for re-evaluation following her visit yesterday. Patient was seen here yesterday for upper abdominal pain that clinically sounded like gastritis however significant elevations to her LFTs and bili were noted on her CMP at the time. Patient subsequently underwent US gallbladder which showed multiple stones and questionable CBD dilation which led her to an MRCP which then did show a small stone in the CBD. Patient had been signed out to following provider, Dr. Reddy who spoke with a Dr. Meyer at [facility]. The plan was for patient to be discharged with close follow-up with Dr. Meyer with the reasoning that her pain was under control and her bilirubin was only 2.3. I was contacted by patient's family this morning with concerns for when they would be seen by the surgeon in [place]. I contacted Dr. Meyer's office who stated they had no referral and would not see patient. I contacted case management who faxed patient's information to their office and were eventually successful at getting her an appointment however this appointment would be in 2-3 days and the office stated it would just be a consult . I did not feel comfortable having the patient wait 3 days knowing she has a CBD stone-I consulted with Dr. Avina and the plan was made to contact patient and bring her back to the emergency department for repeat labs and hopefully transfer for ERCP. Patient and family states she continued to have pain throughout the night and this morning that was fairly controlled with the Tramadol prescribed. MD elicited complaint: abdominal pain Associated Symptoms: Reports nausea; Denies change in stool character, chills, diarrhea, dysuria, fever(s) and vomiting Review of Systems Const: Denies: fever(s), chills, body aches, fatigue or malaise Card: Denies: chest pain Resp: Denies: dyspnea GI: Reports: abdominal pain and nausea; Denies: vomiting, diarrhea or change in stool character : Denies: flank pain, difficulty voiding, dysuria, urinary frequency or urinary urgency Musc: Denies: neck pain or back pain Skin/Breast: Denies: rash Neuro: Denies: headache(s) PFSH ED PFSH: Medical History Allergic rhinitis due to allergen COVID-19 Social History Smoking and tobacco status: never smoked Alcohol intake: never Physical Exam Const: COMMON NORMALS: average body habitus, patient oriented x3, no limitations, healthy appearing, alert and well nourished GENERAL APPEARANCE: cooperative ORIENTATION/CONSCIOUSNESS: Yes awake, Yes oriented to person, Yes oriented to place and Yes oriented to time OTHER: looks mildly ill HENMT: COMMON NORMALS: normocephalic and atraumatic HEAD & SCALP: normocephalic and atraumatic Resp: COMMON NORMALS: normal respiratory effort and clear to auscultation bilaterally AUSCULTATION: clear to auscultation bilaterally Cardio: COMMON NORMALS: regular rate and regular rhythm RATE: regular rate RHYTHM: regular rhythm GI: COMMON NORMALS: Normal to inspection, nondistended, normoactive bowel sounds present, Soft to palpation, No hepatosplenomegaly present and no masses PALPATION: Yes Soft to palpation, Yes Tenderness to palpation present (GI) (RUQ, epigastric ) and Yes No hepatosplenomegaly present Neuro: COMMON NORMALS: patient oriented x3 SENSORIUM/ORIENTATION: Yes alert, Yes oriented to person, Yes oriented to place and Yes oriented to time Course Consultations: Consultation #1: [facility] transfer line spoke to GI provider JESSICA Summers who accepted patient. She request NPO at midnight (clear fluids only), IV Zosyn, and rapid COVID test. Plan will be for ERCP tomorrow morning. I spoke directly to Dr. Rendon who is the hospitalist who accepts patient as well. Emily will call back for a bed. Vital Signs: Vital signs: Vital Signs Temperature 98.7 F 11/26/20 10:19 Pulse Rate 72 11/26/20 11:36 Respiratory Rate 16 11/26/20 13:46 Blood Pressure 134/84 11/26/20 13:46 Pulse Oximetry 98 11/26/20 13:46 MDM - Abdominal Pain MDM Narrative: Medical decision making narrative: Patient appears mildly ill today compared to yesterday's visit. She continues to have upper abdominal pain. Her bilirubin has almost doubled in less than 24 hours. Her AST has decreased but her ALT and alk phos have increased. Lipase is still normal. I still think transfer for an ERCP is in patient's best interest at this time. I have spoken to [facility] transfer line who spoke to GI who agrees that ERCP is indicated. Lab Data: Labs: Lab Results 11/26/20 11/26/20 11/26/20 Range/Units 10:34 10:34 12:15 WBC 6.7 (4.0-10.0) 10^3/ uL RBC 4.87 (4.1-5.3) 10^6/u L Hgb 13.3 (11.5-15.3) g/dL Hct 39.8 (37.0-47.0) % MCV 81.7 (81-99) fL MCH 27.3 L (28.0-34.0) pg MCHC 33.4 (30.0-36.0) g/dL RDW 12.5 (12.1-15.1) % Plt Count 382 (130-400) 10^3/c mm MPV 8.8 (7.4-10.4) fL Neut % (Auto) 74.6 % Lymph % (Auto) 14.8 % [place] % (Auto) 6.1 % Eos % (Auto) 3.6 % Baso % (Auto) 0.6 % Neut # (Auto) 4.97 (1.8-7.7) 10^3/u L Lymph # (Auto) 1.0 (0.8-4.8) 10^3/u L [place] # (Auto) 0.4 (0.2-0.9) 10^3/u L Eos # (Auto) 0.2 (0.0-0.8) 10^3/u L Baso # (Auto) 0.0 (0.0-0.1) 10^3/u L Nucleated RBC % (a uto) 0 % Nucleated RBCs # 0.0 /100WBC Sodium 136 (136-145) mmol/L Potassium 3.6 (3.5-5.1) mmol/L Chloride 98 (98-107) mmol/L Carbon Dioxide 24 (22-29) mmol/L Anion Gap 17.6 (5-19) BUN 11 (6-20) mg/dL Creatinine 0.5 (0.5-0.9) mg/dL GFR Calculation 136.0 H (90-130) mL/min Glucose 154 H (65-115) mg/dL Calculated Osmolal ity 284 L (285-295) mOsm/k g Calcium 9.8 (8.5-10.5) mg/dL Total Bilirubin 4.7 H (0.15-1.2) mg/dL AST 773 H (0-32) U/L ALT 1121 H (0-33) U/L Alkaline Phosphata se 220 H (35-105) IU/L Total Protein 7.6 (6.6-8.7) g/dL Albumin 4.8 (3.5-5.2) g/dL Globulin 2.8 (1.3-4.6) g/dL Lipase 44 (13-60) U/L SARS-CoV-2 Ag (Rap id) Negative (Negative) Imaging Data ^: MRCP (from yesterday's previous visit): Radiologist's impression: MR/MR MRCP [id number] IMPRESSION: 1. 4 mm filling defect in the terminal common bile duct is suspicious for a small intraductal stone. 2. Cholelithiasis without evidence for cholecystitis. 3. Fatty infiltration of the liver. Discharge Plan Discharge Patient Disposition: Xfer Other Clinical Impression: Choledocholithiasis Condition: Stable Referrals: Eric Zuniga MD [Primary Care Provider] - Coding Level of Care Code ED Food Handler for Chg Fwd Exam Detailed Documented by User: Donnell Avina DO 11/26/20 16:20 HPI - Abdominal Pain General: Chief Complaint: Recheck/Abnormal Lab/Rx Stated Complaint: Elevatated LFT's Time Seen by Provider: 11/26/20 10:15 PFSH ED PFSH: Medical History Allergic rhinitis due to allergen COVID-19 Social History Smoking and tobacco status: never smoked Alcohol intake: never Course Vital Signs: Vital signs: Vital Signs Temperature 98.7 F 11/26/20 10:19 Pulse Rate 72 11/26/20 11:36 Respiratory Rate 16 11/26/20 13:46 Blood Pressure 134/84 11/26/20 13:46 Pulse Oximetry 98 11/26/20 13:46 MDM - Abdominal Pain MDM Narrative: Medical decision making narrative: Discussed this case with my Elvin. Patient was seen yesterday they consulted GI and they have deferred follow-up until next week. Reviewed the case with her we are concerned about her choledocholithiasis and elevated bilirubin. Patient was contacted and asked to return to the emergency room for reevaluation. Her bilirubin has increased. And she appears to have further worsened. Arrangements were made for transfer to [facility] as above I reviewed chart I agree with Monique Oconnor's history assessment and plan. Lab Data: Labs: Lab Results 11/26/20 11/26/20 11/26/20 Range/Units 10:34 10:34 12:15 WBC 6.7 (4.0-10.0) 10^3/ uL RBC 4.87 (4.1-5.3) 10^6/u L Hgb 13.3 (11.5-15.3) g/dL Hct 39.8 (37.0-47.0) % MCV 81.7 (81-99) fL MCH 27.3 L (28.0-34.0) pg MCHC 33.4 (30.0-36.0) g/dL RDW 12.5 (12.1-15.1) % Plt Count 382 (130-400) 10^3/c mm MPV 8.8 (7.4-10.4) fL Neut % (Auto) 74.6 % Lymph % (Auto) 14.8 % [place] % (Auto) 6.1 % Eos % (Auto) 3.6 % Baso % (Auto) 0.6 % Neut # (Auto) 4.97 (1.8-7.7) 10^3/u L Lymph # (Auto) 1.0 (0.8-4.8) 10^3/u L [place] # (Auto) 0.4 (0.2-0.9) 10^3/u L Eos # (Auto) 0.2 (0.0-0.8) 10^3/u L Baso # (Auto) 0.0 (0.0-0.1) 10^3/u L Nucleated RBC % (a uto) 0 % Nucleated RBCs # 0.0 /100WBC Sodium 136 (136-145) mmol/L Potassium 3.6 (3.5-5.1) mmol/L Chloride 98 (98-107) mmol/L Carbon Dioxide 24 (22-29) mmol/L Anion Gap 17.6 (5-19) BUN 11 (6-20) mg/dL Creatinine 0.5 (0.5-0.9) mg/dL GFR Calculation 136.0 H (90-130) mL/min Glucose 154 H (65-115) mg/dL Calculated Osmolal ity 284 L (285-295) mOsm/k g Calcium 9.8 (8.5-10.5) mg/dL Total Bilirubin 4.7 H (0.15-1.2) mg/dL AST 773 H (0-32) U/L ALT 1121 H (0-33) U/L Alkaline Phosphata se 220 H (35-105) IU/L Total Protein 7.6 (6.6-8.7) g/dL Albumin 4.8 (3.5-5.2) g/dL Globulin 2.8 (1.3-4.6) g/dL Lipase 44 (13-60) U/L SARS-CoV-2 Ag (Rap id) Negative (Negative) Discharge Plan Discharge Patient Disposition: Xfer Other Clinical Impression: Choledocholithiasis Condition: Stable Referrals: Eric Zuniga MD [Primary Care Provider] - Coding Level of Care Code ED Food Handler for Chg Fwd Exam Detailed
[2020-11-26 10:19] VITALS: BP 138/88; PULSE 77; RESP 18; TEMP 37.1; O2SAT 99; BMI 28.3
[2020-11-26 10:40] VITALS: BP 138/88; PULSE 80; RESP 16; O2SAT 96
[2020-11-26 10:47] VITALS: RESP 18; O2SAT 98
[2020-11-26] MEDS: ondansetron 2 mg/ML SDV 2 mL 4 MG IVP (10:47)
[2020-11-26] MEDS: morphine 4 mg/mL SDV 1 mL IVP (10:47)
[2020-11-26 10:49] LABS: Basophils % 0.6 %; Eosinophils # 0.2 10^3/uL (0.0-0.8); Eosinophils % 3.6 %; Hematocrit 39.8 % (37.0-47.0); Hemoglobin 13.3 g/dL (11.5-15.3); Lymphocytes % 14.8 %; Mean Corpuscular HGB Conc 33.4 g/dL (30.0-36.0); Mean Corpuscular Hemoglobin 27.3 pg (28.0-34.0); Mean Corpuscular Volume 81.7 fL (81-99); Mean Platelet Volume 8.8 fL (7.4-10.4); Monocytes # 0.4 10^3/uL (0.2-0.9); Monocytes % 6.1 %; Neutrophils # 4.97 10^3/uL (1.8-7.7); Neutrophils % 74.6 %; Nucleated Red Blood Cells % 0 %; Platelet Count 382 10^3/cmm (130-400); Red Blood Count 4.87 10^6/uL (4.1-5.3); Red Cell Distribution Width 12.5 % (12.1-15.1); White Blood Count 6.7 10^3/uL (4.0-10.0)
[2020-11-26 11:05] LABS: Albumin Level 4.8 g/dL (3.5-5.2); Alkaline Phosphatase 220 IU/L (35-105); Anion Gap 17.6 (5-19); Blood Urea Nitrogen 11 mg/dL (6-20); Calcium 9.8 mg/dL (8.5-10.5); Carbon Dioxide 24 mmol/L (22-29); Chloride 98 mmol/L (98-107); Globulin 2.8 g/dL (1.3-4.6); Glucose 154 mg/dL (65-115); Lipase 44 U/L (13-60); Osmolality Calculated 284 mOsm/kg (285-295); Potassium 3.6 mmol/L (3.5-5.1); Sodium 136 mmol/L (136-145); Total Bilirubin 4.7 mg/dL (0.15-1.2); Total Protein 7.6 g/dL (6.6-8.7)
[2020-11-26 11:17] LABS: Alanine Aminotransferase 1121 U/L (0-33)
[2020-11-26 11:20] LABS: Aspartate Amino Transferase 773 U/L (0-32)
[2020-11-26 11:36] VITALS: BP 134/85; PULSE 72; RESP 16; O2SAT 97
[2020-11-26] MEDS: metoclopramide 5 mg/mL SDV 2 mL IVP (12:27)
[2020-11-26] MEDS: sodium chloride 0.9% 1,000 ML 999 ML IV (12:27)
[2020-11-26] MEDS: piperacillin-tazobactam 3.375 GM in sodium chloride 0.9% (plus) 50 ML IV (12:28)
[2020-11-26 13:28] LABS: SARS Covid-2 Antigen Negative (Negative)
[2020-11-26 13:46] VITALS: BP 134/84; RESP 16; O2SAT 98
== END 2020-11-26 15:20 | disposition other institution (70) ==
PROVIDERS: Emergency Provider Physician Assistant; PCP Family Medicine Adult Medicine
DX: K80.50 Calculus of bile duct without cholangitis or cholecystitis without obstruction (principal)
CPT/HCPCS: 12345; 80053; 83690; 85025; 87426; 96365; 96375; 99283; 99285; J2270; J2405; J2543; J2765; J7030

== ENCOUNTER → 2021-02-24 15:00 | Outpatient (BNVA) | payer OTHER, SELFPAY | PROVIDERS: PCP Family Medicine Adult Medicine; Visit Provider Family Medicine Adult Medicine | DX: Z00.00 Encounter for general adult medical examination without abnormal findings (principal); L03.90 Cellulitis, unspecified; R03.0 Elevated blood-pressure reading, without diagnosis of hypertension; Z90.49 Acquired absence of other specified parts of digestive tract | CPT/HCPCS: 88175 ==

== ENCOUNTER → 2021-03-14 08:09 | Outpatient (BNVA) | payer OTHER, SELFPAY | PROVIDERS: PCP Family Medicine Adult Medicine; Visit Provider Family Medicine Adult Medicine | DX: Z00.00 Encounter for general adult medical examination without abnormal findings (principal); Z78.9 Other specified health status | CPT/HCPCS: 88175 ==

== ENCOUNTER → 2022-11-02 10:20 | Outpatient (BNVA) | payer OTHER, SELFPAY | PROVIDERS: PCP Family Medicine Adult Medicine; Visit Provider Emergency Medicine | DX: J02.9 Acute pharyngitis, unspecified (principal) | CPT/HCPCS: 87071; 87880 ==

== ENCOUNTER → 2024-10-30 08:23 | Outpatient (BNVA) | payer OTHER, SELFPAY | DX: Z76.89 Persons encountering health services in other specified circumstances | CPT/HCPCS: 80053; 85025 ==

== ENCOUNTER 2024-11-13 08:47 | Outpatient (CLI) | payer OTHER, SELFPAY ==
--- NOTE | 2024-11-13 09:00 | MM_ITS ---
WS: [id number] SCREENING DIGITAL BREAST TOMOSYNTHESIS MAMMOGRAM WITH CAD HISTORY: screening COMPARISON: 07/30/2020, 06/03/2019 Bilateral CC and MLO with tomosynthesis and synthetic mammography submitted. Computer aided detection analyzed. Breast composition: The breasts are heterogeneously dense, which may obscure small masses. New area o f architectural distortion seen best on the LEFT CC projection at a middle depth. Small benign calcif ication RIGHT breast. No nipple retraction or skin thickening. MM/MM scr tomosynthesis [id number] IMPRESSION: BI-RADS: 0 - Incomplete: Need additional imaging evaluation FOLLOW UP: Need Additional Imaging LEFT breast: Spot compression views (CC and MLO). True ML. Ultrasound to follow if abnormality persists.
== END 2024-11-13 08:48 | disposition home or self-care (01) ==
LOC: RAD 08:49
DX: Z12.31 Encounter for screening mammogram for malignant neoplasm of breast (principal); R92.333 Mammographic heterogeneous density, bilateral breasts; R92.8 Other abnormal and inconclusive findings on diagnostic imaging of breast; R92.1 Mammographic calcification found on diagnostic imaging of breast
CPT/HCPCS: 77063; 77067

== ENCOUNTER 2024-12-23 12:48 | Outpatient (CLI) | payer OTHER, SELFPAY ==
--- NOTE | 2024-12-23 13:00 | MM_ITS ---
WS: [id number] ADDITIONAL VIEWS LEFT MAMMOGRAM WITH DIGITAL BREAST TOMOSYNTHESIS. LEFT BREAST ULTRASOUND HISTORY: abnormal mammogram COMPARISON: 11/13/2024, 07/30/2020 LEFT MAMMOGRAM: Spot compression views and true ML with digital breast tomosynthesis and SM. Breast composition: The breasts are heterogeneously dense, which may obscure small masses. Asymmetry and distortion nearly completely resolved in the central LEFT breast. No mass identified. Ultrasound to follow. LEFT BREAST ULTRASOUND 2-D and color Doppler imaging submitted. No area of shadowing or mass identified in the upper outer quadrant of the LEFT breast. MM/MM diag LT tomosynthesis [id number] IMPRESSION: BI-RADS: 2 - Benign FOLLOW UP: 1 Year Follow-up Near complete resolution of the very small area of distortion in the upper oute r quadrant. No abnormality noted by ultrasound.
--- NOTE | 2024-12-23 13:30 | US_ITS ---
WS: [id number] ADDITIONAL VIEWS LEFT MAMMOGRAM WITH DIGITAL BREAST TOMOSYNTHESIS. LEFT BREAST ULTRASOUND HISTORY: abnormal mammogram COMPARISON: 11/13/2024, 07/30/2020 LEFT MAMMOGRAM: Spot compression views and true ML with digital breast tomosynthesis and SM. Breast composition: The breasts are heterogeneously dense, which may obscure small masses. Asymmetry and distortion nearly completely resolved in the central LEFT breast. No mass identified. Ultrasound to follow. LEFT BREAST ULTRASOUND 2-D and color Doppler imaging submitted. No area of shadowing or mass identified in the upper outer quadrant of the LEFT breast. US/US breast LT limited* [id number] IMPRESSION: BI-RADS: 2 - Benign FOLLOW UP: 1 Year Follow-up Near complete resolution of the very small area of distortion in the upper oute r quadrant. No abnormality noted by ultrasound.
== END 2024-12-23 12:49 | disposition home or self-care (01) ==
LOC: RAD 12:49
DX: R92.8 Other abnormal and inconclusive findings on diagnostic imaging of breast (principal); R92.332 Mammographic heterogeneous density, left breast
CPT/HCPCS: 76642; 77061; G0279

== ENCOUNTER 2025-05-15 08:36 | Outpatient (CLI) | payer OTHER, SELFPAY ==
--- NOTE | 2025-05-15 08:41 | XR_ITS ---
WS: [id number] XR knee LT 3V* [id number] REASON FOR EXAM: left knee pain FINDINGS: No fracture. Small exophytic osteochondroma of the proximal fibula. Benign. Minimal/mild narrowing of the medial knee joint space with minimal subchondral sclerosis. Lateral knee joint space intact and well preserved. Patellofemoral joint space intact and relatively well preserved with minimal subchondral sclerosis and osteophytosis of the patella. XR/XR knee LT 3V* [id number] IMPRESSION: Minimal osteoarthritis of the left knee as above.
== END 2025-05-15 08:37 | disposition home or self-care (01) ==
DX: M17.12 Unilateral primary osteoarthritis, left knee (principal)
CPT/HCPCS: 73562

== ENCOUNTER → 2025-09-11 10:11 | Outpatient (BNVA) | payer OTHER, SELFPAY | PROVIDERS: Visit Provider Nurse Practitioner | DX: J02.8 Acute pharyngitis due to other specified organisms (principal); B97.89 Other viral agents as the cause of diseases classified elsewhere; R50.9 Fever, unspecified | CPT/HCPCS: 87400; 87426 ==